=== PATIENT | female | born 1960 | race Caucasian/White ===

== ENCOUNTER 2018-05-02 11:30 | Outpatient (AMBR) | payer MEDICAID, SELFPAY ==
--- NOTE | 2018-04-22 14:26 | PT.ODAYNRPT ---
PT Outpatient Daily Note Date of Service: April 22, 2018 OP Daily Note Visit Reasons: low back pain Outpatient Physical Therapy Treatment Date: 04/22/18 Subjective: pt reported having an MRI done for her head and found out her results which made her feel relieved. pt states she has an exercise ball at home. Objective: see flow sheet. Assessment: advised pt to continue HEP with ball at home. pt had good ROM during bug exercise with no complaints of pain. added new exercise using the ball to activate the core. pt felt the muscle contraction more with the new exercise. after ther ex followed by traction of the lumbar and she tolerated well with no complaints. pt is pleasant and cooperative. denied dizziness after traction. Plan: continue POC per PT. Length of Time (minutes) of Treatment: 30 Minutes Office Procedures PT Procedures PT Date of Service: 04/22/18 Traction Mechanical: Yes Therapeutic Exercise 15 minutes: Yes
--- NOTE | 2018-04-25 14:13 | PT.ODAYNRPT ---
PT Outpatient Daily Note Date of Service: April 25, 2018 OP Daily Note Visit Reasons: low back pain Outpatient Physical Therapy Treatment Date: 04/25/18 Subjective: pt came in feeling ok and no complaints from last visit. pt states compliance with HEP. Objective: see flow sheet. Assessment: pt demonstrates no difficulty with activating the core during supine exercises.pt has conversation throughout treatment indicating good tolerance and no difficulty. 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 during traction there was no complaints of pain during and after. no dizziness as she got up feeling fine. Plan: continue POC per PT. Length of Time (minutes) of Treatment: 30 Minutes Office Procedures PT Procedures PT Date of Service: 04/22/18 Traction Mechanical: Yes Therapeutic Exercise 15 minutes: Yes PT Procedures PT Date of Service: 04/25/18 Therapeutic Exercise 30 minutes: Yes
--- NOTE | 2018-04-25 14:17 | PTNOTE_ITS ---
PT Outpatient Daily Note Date of Service: April 25, 2018 OP Daily Note Visit Reasons: low back pain Outpatient Physical Therapy Treatment Date: 04/25/18 Subjective: pt came in feeling ok and no complaints from last visit. pt states compliance with HEP. Objective: see flow sheet. Assessment: pt demonstrates no difficulty with activating the core during supine exercises.pt has conversation throughout treatment indicating good tolerance and no difficulty. 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 during traction there was no complaints of pain during and after. no dizziness as she got up feeling fine. Plan: continue POC per PT. Length of Time (minutes) of Treatment: 30 Minutes Office Procedures PT Procedures PT Date of Service: 04/22/18 Traction Mechanical: Yes Therapeutic Exercise 15 minutes: Yes PT Procedures PT Date of Service: 04/25/18 Therapeutic Exercise 30 minutes: Yes
--- NOTE | 2018-05-02 13:13 | PT.ODAYNRPT ---
PT Outpatient Daily Note Date of Service: May 02, 2018 OP Daily Note Visit Reasons: low back pain Outpatient Physical Therapy Treatment Date: 05/02/18 Subjective: pt reports back feeling a lot better. she bought an SB and continues with HEP. Objective: see flow sheet. Assessment: pt doing well with ther ex as there is no signs of difficulties nor pain. she can get on and off the bed and traction machine on her own. pt always has good attitude which indicates no pain or other issues. pt tolerates traction well with no dizziness after. overall pt doing well. ambulates with normal gait pattern and good posture. Plan: continue POC per PT. Length of Time (minutes) of Treatment: 30 Minutes Office Procedures PT Procedures PT Date of Service: 04/22/18 Traction Mechanical: Yes Therapeutic Exercise 15 minutes: Yes PT Procedures PT Date of Service: 05/02/18 Traction Mechanical: Yes Therapeutic Exercise 15 minutes: Yes PT Procedures PT Date of Service: 04/25/18 Therapeutic Exercise 30 minutes: Yes
== END 2018-05-05 23:59 | disposition home or self-care (01) ==
PROVIDERS: PCP Physician Assistant; Referring Provider Physician Assistant; Visit Provider Physician Assistant
DX: M54.5 Low back pain (principal); M54.2 Cervicalgia
CPT/HCPCS: 97012; 97110

== ENCOUNTER → 2024-06-03 | Outpatient (CLI) | payer MEDICAID, SELFPAY ==
--- NOTE | 2024-06-03 15:15 | XR_ITS ---
Examination: Screening digital mammography, bilateral Computer aided detection 3-D breast Tomosynthesis, bilateral Date and time of exam: June 03, 2024 1508 hours Compared to mammograms dating to December 21, 2014 Indication: Screening Technique: Nonmagnified MLO, CC views of the breasts to been obtained, reconstructed from 3-D Tomosynthesis images. R2 computer aided detection program utilized for evaluation of suspicious masses and/or abnormal calcifications. 3-D Tomosynthesis images obtained. Findings: Scattered areas of fibroglandular density. Benign calcifications. No interval suspicious masses Impression: BI-RADS category II: Benign Findings. Recommend 1 year follow-up mammogram.
== END | disposition home or self-care (01) ==
PROVIDERS: PCP Physician Assistant; Referring Provider Physician Assistant; Visit Provider Physician Assistant
DX: Z12.31 Encounter for screening mammogram for malignant neoplasm of breast (principal); R92.323 Mammographic fibroglandular density, bilateral breasts; R92.1 Mammographic calcification found on diagnostic imaging of breast
CPT/HCPCS: 77063; 77067